=== PATIENT | female | born 1960 | race Caucasian/White ===

== ENCOUNTER 2017-09-01 11:51 | Emergency (ER) | payer OTHER ==
[~2017-09-01] VITALS: Ht 160 cm; Wt 85.7 kg
[2017-09-01] MEDS ORDERED: ZOFRAN4 MG (12:24)
[2017-09-01] MEDS ORDERED: FARESTON60 MG (12:24)
[2017-09-01] MEDS ORDERED: PROAIR HFA8.5 GM (12:24)
[2017-09-01] MEDS ORDERED: BENADRYL25 MG (12:25)
== END 2017-09-01 18:55 | disposition home or self-care (01) ==
LOC: ER 11:51
DX: J45.998 Other asthma (principal)